=== PATIENT | male | born 1970 | race Caucasian/White ===

== ENCOUNTER 2017-10-27 09:11 | Emergency (ER) | payer OTHER ==
[~2017-10-27] VITALS: Ht 175.3 cm; Wt 71.2 kg
[~2017-10-27 09:11] MED LIST: NORVIR100 MG PO; PREZISTA 600MG; TRUVADA TABLET1 TAB PO
== END 2017-10-27 19:29 | disposition home or self-care (01) ==
LOC: ER 09:11
DX: M79.621 Pain in right upper arm (principal)

== ENCOUNTER 2017-11-26 10:58 | Outpatient (CLI) | payer OTHER | END 2017-11-26 11:13 | disposition home or self-care (01) | LOC: SONOGRAMA 10:58 → MAMO-SONO 11:15 | DX: M75.81 Other shoulder lesions, right shoulder (principal); M65.841 Other synovitis and tenosynovitis, right hand ==

== ENCOUNTER 2017-11-27 10:46 | Outpatient (CLI) | payer OTHER | END 2017-11-27 15:09 | disposition home or self-care (01) | LOC: RAD 10:46 | DX: M47.22 Other spondylosis with radiculopathy, cervical region (principal) ==

== ENCOUNTER 2017-12-11 09:46 | Outpatient (CLI) | payer OTHER | END 2017-12-11 15:04 | disposition home or self-care (01) | LOC: MRI 09:46 | DX: M75.42 Impingement syndrome of left shoulder (principal); M24.511 Contracture, right shoulder; S43.432A Superior glenoid labrum lesion of left shoulder, initial encounter; M84.321A Stress fracture, right humerus, initial encounter for fracture | CPT/HCPCS: 73221 ==

== ENCOUNTER 2018-02-24 06:50 | Outpatient (CLI) | payer OTHER | END 2018-02-24 07:00 | disposition home or self-care (01) | LOC: LAB 06:50 | DX: B20 Human immunodeficiency virus [HIV] disease (principal) ==

== ENCOUNTER → 2018-03-12 | Outpatient (CLI) | payer OTHER | END | disposition home or self-care (01) | LOC: LAB 07:25 | DX: B20 Human immunodeficiency virus [HIV] disease (principal) ==

== ENCOUNTER 2018-06-19 07:14 | Outpatient (CLI) | payer OTHER | END 2018-06-19 07:20 | disposition home or self-care (01) | LOC: LAB 07:14 | DX: B20 Human immunodeficiency virus [HIV] disease (principal); R80.8 Other proteinuria; Z11.4 Encounter for screening for human immunodeficiency virus [HIV] ==

== ENCOUNTER 2018-08-18 06:45 | Outpatient (CLI) | payer OTHER | END 2018-08-18 06:58 | disposition home or self-care (01) | LOC: LAB 06:45 | DX: Z11.4 Encounter for screening for human immunodeficiency virus [HIV] (principal) ==

== ENCOUNTER 2019-01-13 06:39 | Outpatient (CLI) | payer OTHER | END 2019-01-13 06:49 | disposition home or self-care (01) | LOC: LAB 06:39 | DX: B20 Human immunodeficiency virus [HIV] disease (principal); Z11.4 Encounter for screening for human immunodeficiency virus [HIV] ==

== ENCOUNTER 2019-03-30 09:09 | Outpatient (CLI) | payer OTHER | END 2019-03-30 09:14 | disposition home or self-care (01) | LOC: SONOGRAMA 09:09 | DX: M70.62 Trochanteric bursitis, left hip (principal) ==

== ENCOUNTER 2019-04-01 09:12 | Outpatient (CLI) | payer OTHER | END 2019-04-01 09:32 | disposition home or self-care (01) | LOC: NUCLEAR 09:12 | DX: M06.4 Inflammatory polyarthropathy (principal) | CPT/HCPCS: 78315; A9503 ==

== ENCOUNTER → 2021-09-03 07:16 | Outpatient (CLI) | payer OTHER | END | disposition home or self-care (01) | LOC: NUCLEAR 08-27 10:00 | PROVIDERS: ATTEND Physical Medicine & Rehabilitation Hospice and Palliative Medicine | DX: M08.3 Juvenile rheumatoid polyarthritis (seronegative) (principal) ==